=== PATIENT | female | born 1935 | race African-American/Black ===

== ENCOUNTER 2019-04-24 03:00 | Emergency (ER) | payer OTHER ==
[~2019-04-24] VITALS: Ht 165.1 cm; Wt 59.0 kg
[2019-04-24 03:00] VITALS: BP 73/36
--- NOTE | 2019-04-24 03:00 | NUR ---
BIBA TAKEN TO BED #5
[2019-04-24] MEDS ORDERED: NACL 0.9% 1,000 ML IV ONE ×2 (03:04→04:10)
--- NOTE | 2019-04-24 03:10 | NUR ---
83 YO F BIBA FROM HOME FOR ALTERED MENTATION S/P FALL. PER EMS, DAUGHTER STATED THAT PT WAS DRINKING A SHAKE AT THE TABLE WHEN SHE SUDDENLY BECAME LIGHTHEADED AND SLID OFF CHAIR ONTO WOODEN FLOOR @ 0220. DAUGHTER STATES SHE DENIES LOC AND HITTING HER HEAD. AFTER FALL, DAUGHTER STATES THAT PT BECAME LESS RESPONSIVE TO ANSWERING QUESTIONS AND WAS NOT RESPONDING APPROPRIATELY. 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 PT ARRIVES TO OUR FACILITY AWAKE, A/O TO NAME AND PLACE. SPEAKS WITH WEAK, QUIET VOICE. REQUIRES FULL ASSIST FOR TRANSFER TO BED. DAUGHTER STATES PT IS USUALLY ABLE TO AMBULATE WITH ASSIST AND WITH WALKER. UNABLE TO ANSWER MORE QUESTIONS BUT CAN FOLLOW SIMPLE COMMANDS. 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 HAS GENERAL WEAKNESS TO LOWER EXTREMETIES. SKIN IS COLD TO TOUCH. PT IS HYPOTENSIVE. ANNA AND RN AT BEDSIDE.
--- NOTE | 2019-04-24 03:15 | NUR ---
RECTAL TEMP 95. BECKIE HUGGER BLANKET PLACED ON PT, SET TO HIGH. DR. LOPES MADE AWARE.
--- NOTE | 2019-04-24 03:21 | NUR ---
BP DROPS TO 57/24. DR. LOPES CALLED TO BEDSIDE. TWO PIV STARTED AND RAPID FLUID BOLUS INITIATED. PT PLACED IN TRENDELENBERG. DR. LOPES ATTEMPTING TO DRAW BLOOD.
[2019-04-24 03:45] LABS: HEMOGLOBIN 11.6 g/dL (12.0-16.0); NEUTROPHILS # (AUTO) 11.7 K/uL (1.8-7.7)
[2019-04-24] MEDS ORDERED: PIPERACILLIN/TAZOBACTAM 3.375 GM in DEXTROSE 5% 50 ML IV ONE (03:45)
[2019-04-24 03:49] LABS: BASOPHILS % (AUTO) 0.3 % (0.0-2.0); LYMPHOCYTES # (AUTO) 0.9 K/uL (2.5-16.5); LYMPHOCYTES % (AUTO) 6.8 % (20.5-51.1); MEAN CORPUSCULAR HEMOGLOBIN 26 pg (27-31); MEAN CORPUSCULAR HGB CONC 30 g/dL (33-37); MEAN CORPUSCULAR VOLUME 86.1 fL (80-94); MONOCYTES # (AUTO) 0.5 K/uL (0.8-1.0); MONOCYTES % (AUTO) 3.8 % (1.7-9.3); NEUTROPHILS % (AUTO) 89.1 % (42.2-75.2); PLATELET COUNT (AUTO) 272 K/uL (140-450); RED BLOOD CELL COUNT(AUTO) 4.42 MIL/uL (4.20-5.40); RED CELL DISTRIBUTION WIDTH 15.7 % (11.6-13.7); WHITE BLOOD COUNT (AUTO) 13.1 K/uL (4.8-10.8)
--- NOTE | 2019-04-24 03:50 | NUR ---
BP STABILIZED. DR. LOPES NOTIFIED. TAKEN TO CT VIA [facility] WITH RN ACCOMPANYING. Addendum: 04/24/19 at 0653 by [facility] BP STABILIZED AT 98/44.
[2019-04-24 03:52] LABS: HEMATOCRIT 34.8 % (36-48)
[2019-04-24 04:00] LABS: ALBUMIN 2.7 g/dL (3.4-5.0); ASPARTATE AMINOTRANSFERASE 37 U/L (15-37); CHLORIDE 111 mmol/L (98-107); CREATININE 1.6 mg/dL (0.6-1.3); GLUCOSE 160 mg/dL (74-106); LIPASE 76 U/L (73-393); SODIUM SERUM 153 mmol/L (136-145); TOTAL BILIRUBIN 1.1 mg/dL (0.0-1.0); UREA NITROGEN, BLOOD 50 mg/dL (7-18)
--- NOTE | 2019-04-24 04:10 | NUR ---
RETURN FROM CT. PT STABLE.
[2019-04-24 04:14] LABS: PROTHROMBIN TIME 11.4 secs (10.8-13.4)
[2019-04-24] MEDS ORDERED: PIPERACILLIN/TAZOBACTAM 3.375 GM VIAL IV ONE (04:20)
[2019-04-24] MEDS ORDERED: KCL 20 MEQ/WATER INJ PREMIX 100 ML IV ONE (04:20)
--- NOTE | 2019-04-24 04:30 | NUR ---
# 16 FR Culp catheter with 10 ml utilizing sterile technique. Immediate return of 40 ml turbid, dark yellow urine noted. Bedside drainage bag placed below level of bladder. Urine sample collected and sent to lab. Pt tolerated procedure well.
--- NOTE | 2019-04-24 04:45 | NUR ---
DAUGHTER STATES THAT HER MOTHER HAS BEEN GRADUALLY DECLINING SINCE JANUARY WITH INCREASING WEAKNESS.
[2019-04-24] MEDS ORDERED: LEVOFLOXACIN 500 MG/D5W PREMIX 100 ML IV ONE (05:00)
--- NOTE | 2019-04-24 05:25 | NUR ---
PT IS MORE ACTIVE, ALERT. TRYING TO PULL BLANKETS AND BECKIE HUGGER OFF; PT STATES "I'M HOT" IN MUMBLED, SLURRED SPEECH. RECTAL TEMP RETAKEN: 95, NO CHANGE. DR. GROSS MADE AWARE.
[2019-04-24 05:44] LABS: APPEARANCE,URINE CLOUDY (CLEAR); BILIRUBIN,URINE 2+ (NEGATIVE); BLOOD, URINE NEGATIVE (NEGATIVE); COLOR,URINE YELLOW (YELLOW); LEUKOCYTE ESTERASE ,URINE 1+ (NEGATIVE); NITRITE, URINE NEGATIVE (NEGATIVE); UGLUCOSE NEGATIVE (NEGATIVE)
[2019-04-24 06:10] LABS: RBC,URINE 0-5 /HPF (0-5)
[2019-04-24 06:28] VITALS: BP 99/44
--- NOTE | 2019-04-24 06:28 | NUR ---
Patient to be transferred to [facility]. Is being transferred due to higher level of care: neurosurgery. Receiving facility has accepting physician and available space. ER physician has signed transfer form. Patient or responsible libertarian has agreed to transfer and signed form. Patient belongings inventoried and will be sent with patient. Copy of nursing notes, lab reports, EKG, Physicians Orders and X-rays to be sent with patient. Report called to EMELI Powers at receiving facility. [facility] has been called for transfer. ETA is 20 mins.
--- NOTE | 2019-04-24 06:45 | NUR ---
REPORT GIVEN TO FLORENCE W[place]. TRANSFER OF CARE AT THIS TIME. PT TRANSFERRED TO [facility]. VSS AT TIME OF TRANSFER. PT LEAVES FACILITY VIA FLOR[facility] MAURICIO. DAUGHTER MADE AWARE IN LOBBY. WILL BE FOLLOWING BEHIND IN HER OWN VEHICLE.
== END 2019-04-24 06:45 | disposition short-term general hospital (02) ==
LOC: MED 03:00
DX: A41.9 Sepsis, unspecified organism (principal); E86.0 Dehydration; E87.0 Hyperosmolality and hypernatremia; E87.6 Hypokalemia; C71.9 Malignant neoplasm of brain, unspecified; J18.9 Pneumonia, unspecified organism; I51.89 Other ill-defined heart diseases; Z86.73 Personal history of transient ischemic attack (TIA), and cerebral infarction without residual deficits; I10 Essential (primary) hypertension
CPT/HCPCS: 36415; 70450; 71045; 80053; 81001; 83605; 83690; 84484; 85025; 85610; 87040; 87086; 93005; 96361; 96365; 96366; 96368; 99291; J1956; J2543; J3480; J7030; Q0092